=== PATIENT | female | born 1950 | race Caucasian/White ===

== ENCOUNTER 2022-06-02 21:03 | Inpatient (IN) | payer OTHER ==
[~2022-06-02] VITALS: Ht 157.5 cm; Wt 130.2 kg
[2022-06-02 21:05] VITALS: BP 123/58
--- NOTE | 2022-06-02 21:05 | NUR ---
TO BED AMBULATORY
--- NOTE | 2022-06-02 21:10 | NUR ---
RECEIVED IN BED 9 WITH C/O NUMBNESS TO LEFT SIDE OF HEAD AND LEFT SHOULDER. PT WITH EQUAL SMILE, KARLA, HAND APPOINTMENT MANAGER STRONG AND EQUAL.
--- NOTE | 2022-06-02 22:16 | NUR ---
DR IVLLANUEVA AT BEDSIDE FOR EXAM
[2022-06-02 22:35] LABS: BASOPHILS # (AUTO) 0.1 K/uL (0.00-0.22); BASOPHILS % (AUTO) 1.2 % (0.0-2.0); EOSINOPHILS # (AUTO) 0.2 K/uL (0-0.4); EOSINOPHILS % (AUTO) 2.3 % (0.0-4.0); HEMATOCRIT 36.9 % (36-48); HEMOGLOBIN 12.1 g/dL (12.0-16.0); LYMPHOCYTES # (AUTO) 2.3 K/uL (2.5-16.5); LYMPHOCYTES % (AUTO) 25.5 % (20.5-51.1); MEAN CORPUSCULAR HEMOGLOBIN 28 pg (27-31); MEAN CORPUSCULAR HGB CONC 33 g/dL (33-37); MONOCYTES # (AUTO) 0.5 K/uL (0.8-1.0); MONOCYTES % (AUTO) 5.8 % (1.7-9.3); NEUTROPHILS % (AUTO) 65.2 % (42.2-75.2); PLATELET COUNT (AUTO) 230 K/uL (140-450); RED CELL DISTRIBUTION WIDTH 15.7 % (11.6-13.7); WHITE BLOOD COUNT (AUTO) 9.2 K/uL (4.8-10.8)
--- NOTE | 2022-06-02 22:38 | NUR ---
PT TO CT VIA ROBYN
--- NOTE | 2022-06-02 22:50 | NUR ---
RETURNED FROM CT
[2022-06-02 22:55] LABS: ANION GAP 10.8 (8-16); CARBON DIOXIDE 33.2 mmol/L (21-32); CHLORIDE 102 mmol/L (98-107); CREATININE 0.6 mg/dL (0.6-1.3); GLUCOSE 170 mg/dL (74-106); SODIUM SERUM 143 mmol/L (136-145); UREA NITROGEN, BLOOD 15 mg/dL (7-18)
[2022-06-02 22:56] LABS: ALBUMIN 3.6 g/dL (3.4-5.0); ASPARTATE AMINOTRANSFERASE 24 U/L (15-37); GFR ARICAN-AMERICAN 127 mL/min (>90); TOTAL BILIRUBIN 0.1 mg/dL (0.0-1.0)
[2022-06-02 22:58] LABS: PROTHROMBIN TIME 9.9 secs (10.8-13.4)
[2022-06-03] MEDS ORDERED: POTASSIUM CHLORIDE 20% 40 MEQ/15 ML UDC PO ONE
--- NOTE | 2022-06-03 00:35 | NUR ---
PTS DAUGHTER AT BEDSIDE SPEAKING WITH KAY. DAUGHTER GLORY : [phone], DAUGHTER BRITTNEY [phone], DAUGHTER LUCIO : [phone]
[2022-06-03] MEDS ORDERED: CLOPIDOGREL 75 MG TAB PO ONE (00:45)
[2022-06-03] MEDS ORDERED: AMLO10TA89 PO (00:58)
[2022-06-03] MEDS ORDERED: OMEP40EC23 PO ×2 (01:04→09:30)
[2022-06-03] MEDS ORDERED: HYDR-4004 PO (01:04)
[2022-06-03] MEDS ORDERED: CANA100T PO (01:04)
[2022-06-03] MEDS ORDERED: OXYB5TAB44 PO (01:04)
[2022-06-03] MEDS ORDERED: ATOR20TA PO ×2 (01:04→09:30)
[2022-06-03] MEDS ORDERED: ISOS20TA13 PO (01:04)
[2022-06-03] MEDS ORDERED: GLIP10TE PO (01:04)
[2022-06-03] MEDS ORDERED: ASPIRIN 81 MG TAB.CHEW PO SCH (01:50)
[2022-06-03 02:07] LABS: APPEARANCE,URINE CLEAR (CLEAR); BILIRUBIN,URINE NEGATIVE (NEGATIVE); BLOOD, URINE NEGATIVE (NEGATIVE); COLOR,URINE YELLOW (YELLOW); LEUKOCYTE ESTERASE ,URINE NEGATIVE (NEGATIVE); NITRITE, URINE NEGATIVE (NEGATIVE); UGLUCOSE >=1000 (NEGATIVE)
[2022-06-03 02:21] LABS: RBC,URINE 0-5 /HPF (0-5); WBC,URINE 0-5 /HPF (0-5); YEAST,URINE Rare /HPF (None Seen)
--- NOTE | 2022-06-03 02:28 | NUR ---
REPORT GIVEN TO ELVIS BOYD
[2022-06-03 03:00] VITALS: BP 136/63
--- NOTE | 2022-06-03 03:00 | NUR ---
RECEIVED PATIENT FROM ER NURSE ALVARADO FOR CONTINUITY OF CARE. PATIENT IS A&O X4. PATIENT IS ON ROOM AIR, BREATHING IS NORMAL WITH SYMMETRICAL RISE AND FALL OF CHEST. IV IS A 20G RAC, NO FLUIDS RUNNING AT THIS TIME (SALINE LOCKED). PATIENT IS AWAKE AND ALERT. PATIENT IS ABLE TO AMBULATE INDEPENDENTLY. BED IS IN LOWEST POSITION, WHEELS LOCKED, CALL LIGHT IN PLACE. WILL CONTINUE TO OBSERVE PATIENT.
[2022-06-03] MEDS: BLOOD GLUCOSE MONITORING 1 DEV DEV FS SCH ×4 (06:43→20:55)
--- NOTE | 2022-06-03 07:48 | NUR ---
ENDORSED TO DAY SHIFT NURSE JOSEPH FOR CONTINUITY OF CARE. PATIENT IS STABLE.
[2022-06-03 08:00] VITALS: BP 131/58
[2022-06-03] MEDS ORDERED: MAG SULF 2000 MG/WATER PREMIX 50 ML IV PRN (08:00)
[2022-06-03 08:02] LABS: BASOPHILS # (AUTO) 0.1 K/uL (0.00-0.22); BASOPHILS % (AUTO) 0.9 % (0.0-2.0); EOSINOPHILS # (AUTO) 0.2 K/uL (0-0.4); EOSINOPHILS % (AUTO) 2.2 % (0.0-4.0); HEMATOCRIT 35.6 % (36-48); HEMOGLOBIN 11.6 g/dL (12.0-16.0); LYMPHOCYTES # (AUTO) 1.9 K/uL (2.5-16.5); LYMPHOCYTES % (AUTO) 21.9 % (20.5-51.1); MEAN CORPUSCULAR HEMOGLOBIN 28 pg (27-31); MEAN CORPUSCULAR HGB CONC 33 g/dL (33-37); MEAN CORPUSCULAR VOLUME 84.1 fL (80-94); MONOCYTES # (AUTO) 0.6 K/uL (0.8-1.0); MONOCYTES % (AUTO) 6.4 % (1.7-9.3); NEUTROPHILS % (AUTO) 68.6 % (42.2-75.2); PLATELET COUNT (AUTO) 212 K/uL (140-450); RED BLOOD CELL COUNT(AUTO) 4.23 MIL/uL (4.20-5.40); RED CELL DISTRIBUTION WIDTH 15.6 % (11.6-13.7); WHITE BLOOD COUNT (AUTO) 8.8 K/uL (4.8-10.8)
[2022-06-03 08:16] LABS: ANION GAP 8.3 (8-16); CARBON DIOXIDE 35.6 mmol/L (21-32); CREATININE 0.5 mg/dL (0.6-1.3); POTASSIUM 3.9 mmol/L (3.5-5.1)
[2022-06-03] MEDS ORDERED: ACETAMINOPHEN 325 MG TAB PO PRN ×2 (10:20→14:05)
[2022-06-03] MEDS: hydroCHLOROthiazide 25 MG TAB PO SCH (11:29)
[2022-06-03] MEDS: ISOSORBIDE MONONITRATE 30 MG TABER PO SCH (11:29)
[2022-06-03] MEDS: CLOPIDOGREL 75 MG TAB PO SCH (11:30)
[2022-06-03] MEDS: INSULIN LISPRO SLIDING SCALE 100 UNITS/ML VIAL SUBQ PRN (11:30)
[2022-06-03 12:00] VITALS: BP 124/48
[2022-06-03] MEDS ORDERED: DOCUSATE SODIUM 100 MG GELCAP PO PRN (14:05)
[2022-06-03] MEDS ORDERED: MORPHINE SULFATE 2 MG/ML SYR IVP PRN (14:05)
[2022-06-03] MEDS ORDERED: LORazepam 2 MG/ML VIAL IVP PRN (14:05)
[2022-06-03] MEDS ORDERED: ONDANSETRON 4 MG/2 ML VIAL IVP PRN (14:05)
[2022-06-03] MEDS ORDERED: POTASSIUM CHLORIDE 10 MEQ TABER PO PRN (14:05)
[2022-06-03] MEDS ORDERED: ZOLPIDEM 10 MG TAB PO PRN (14:05)
[2022-06-03 16:00] VITALS: BP 119/50
--- NOTE | 2022-06-03 16:09 | NUR ---
ORDER RECEIVED FOR AN MRI TO R/O CVA. ORDER AND CLINICAL PACKET FAXED TO [facility] AND [facility].
--- NOTE | 2022-06-03 19:30 | NUR ---
RECEIVED REPORT FROM DAY SHIFT NURSE JOSEPH FOR CONTINUITY OF CARE. PATIENT IS A&O X4. PATIENT IS ON ROOM AIR, BREATHING IS NORMAL WITH SYMMETRICAL RISE AND FALL OF CHEST. IV IS A 20G RAC, NO FLUIDS RUNNING AT THIS TIME (SALINE LOCKED). PATIENT IS AWAKE AND ALERT. PATIENT IS ABLE TO AMBULATE INDEPENDENTLY. PATIENT IS LYING IN BED VISITING WITH FAMILY MEMBER. BED IS IN LOWEST POSITION, WHEELS LOCKED, CALL LIGHT IN PLACE. WILL CONTINUE TO OBSERVE PATIENT.
[2022-06-03 20:00] VITALS: BP 120/50
[2022-06-04] VITALS: BP 121/57
[2022-06-04 04:00] VITALS: BP 133/65
--- NOTE | 2022-06-04 04:35 | NUR ---
PATIENT HAS CONTINUED TO SLEEP THROUGHOUT THE NIGHT. BREATHING IS NORMAL WITH SYMMETRICAL RISE AND FALL OF CHEST. WILL CONTINUE TO OBSERVE PATIENT.
[2022-06-04 05:28] LABS: BASOPHILS # (AUTO) 0.1 K/uL (0.00-0.22); BASOPHILS % (AUTO) 0.8 % (0.0-2.0); EOSINOPHILS # (AUTO) 0.2 K/uL (0-0.4); EOSINOPHILS % (AUTO) 2.6 % (0.0-4.0); HEMATOCRIT 35.3 % (36-48); HEMOGLOBIN 11.5 g/dL (12.0-16.0); LYMPHOCYTES # (AUTO) 2.3 K/uL (2.5-16.5); LYMPHOCYTES % (AUTO) 26.5 % (20.5-51.1); MEAN CORPUSCULAR HEMOGLOBIN 28 pg (27-31); MEAN CORPUSCULAR HGB CONC 33 g/dL (33-37); MEAN CORPUSCULAR VOLUME 84.4 fL (80-94); MONOCYTES # (AUTO) 0.6 K/uL (0.8-1.0); NEUTROPHILS # (AUTO) 5.4 K/uL (1.8-7.7); NEUTROPHILS % (AUTO) 63.1 % (42.2-75.2); PLATELET COUNT (AUTO) 229 K/uL (140-450); RED BLOOD CELL COUNT(AUTO) 4.18 MIL/uL (4.20-5.40); WHITE BLOOD COUNT (AUTO) 8.6 K/uL (4.8-10.8)
[2022-06-04 05:52] LABS: ANION GAP 8.8 (8-16); CARBON DIOXIDE 33.2 mmol/L (21-32); CREATININE 0.5 mg/dL (0.6-1.3)
[2022-06-04] MEDS: BLOOD GLUCOSE MONITORING 1 DEV DEV FS SCH ×4 (06:39→21:00)
--- NOTE | 2022-06-04 07:00 | NUR ---
receive the patient from nighty shift rn in rm 126B with admitting diagnosis of transient schemic attack . aox4 . will continue to monitor
--- NOTE | 2022-06-04 07:44 | NUR ---
ENDORSED TO DAY SHIFT NURSE MUSA FOR CONTINUITY OF CARE. PATIENT IS STABLE.
[2022-06-04 08:00] VITALS: BP 155/60
[2022-06-04] MEDS ORDERED: CLOPIDOGREL 75 MG TAB PO SCH (09:00)
--- NOTE | 2022-06-04 09:22 | NUR ---
PATIENT HAS BEEN SCREENED AND CATEGORIZED MODERATE NUTRITION RISK. PATIENT WILL BE SEEN WITHIN 3-5 DAYS OF ADMISSION. REVIEWED BY SAMANTA KIMBALL RD
[2022-06-04] MEDS: ASPIRIN 81 MG TAB.CHEW PO SCH (09:36)
[2022-06-04] MEDS: CLOPIDOGREL 75 MG TAB PO SCH (09:36)
[2022-06-04] MEDS: hydroCHLOROthiazide 25 MG TAB PO SCH (09:36)
[2022-06-04] MEDS: amLODIPine 5 MG TAB PO SCH (09:37)
[2022-06-04] MEDS: ATORVASTATIN 20 MG TAB PO SCH (09:37)
[2022-06-04] MEDS: ISOSORBIDE MONONITRATE 30 MG TABER PO SCH (09:37)
--- NOTE | 2022-06-04 11:28 | NUR ---
DC PLANNING: CALLED [facility] SPOKE WITH MARCIA STATED HAS NO PAPERWORK. FAXED TO [facility] AND PROMED CM TO FOLLOW Addendum: 06/04/22 at 1610 by Yesenia Templeton RN DC PLANNING: CALLED [facility] SPOKE WITH MARCIA STATED NO BED AVAILABLE. CM TO FOLLOW
[2022-06-04] MEDS: INSULIN LISPRO SLIDING SCALE 100 UNITS/ML VIAL SUBQ PRN ×3 (11:54→22:02)
--- NOTE | 2022-06-04 15:15 | NUR ---
DC PLANNING ASSESSMENT COMPLETE SEE ASSESSMENT FOR DETAILS PER PT, TENTATIVE DC PLAN IS TO RETURN HOME WITH FAMILY PROVIDING TRANSPORTATION, WHEN MEDICALLY STABLE. Addendum: 06/04/22 at 1516 by Carson HELM Amended: Links added.
[2022-06-04 16:00] VITALS: BP 169/66
--- NOTE | 2022-06-04 19:35 | NUR ---
RECEIVED REPORT FROM [facility] NURSE VIGIL FOR CONTINUITY OF CARE. PATIENT IS RESTING IN BED ON ROOM AIR. NO SOB NOTED. RESPIRATION EVEN UNLABORED. NO COMPLAINTS OF AIN AT THIS TIME. IV ACCESS ON THE LAC 20 GAUGE SALINE LOCK. CALL LIGHT WITHIN REACH. PATIENT IS ABLE TO AMBULATE. BED WHEELS LOCKED.
[2022-06-04 20:00] VITALS: BP 125/65
--- NOTE | 2022-06-04 21:42 | NUR ---
ADMINISTERED SCHEDULED DUE MEDICATION.
[2022-06-05] VITALS: BP 128/62
[2022-06-05 04:00] VITALS: BP 114/65
--- NOTE | 2022-06-05 04:30 | NUR ---
SHANTEL FROM [facility] CALLED SAYING TO DISCUSS WITH THE ATTENDING THAT THE HOSPITAL STANDARD IN [facility] IS AFTER [address] IF NEGATIVE PATIENT MAY GO HOME.
[2022-06-05 05:29] LABS: BASOPHILS # (AUTO) 0.1 K/uL (0.00-0.22); BASOPHILS % (AUTO) 0.8 % (0.0-2.0); EOSINOPHILS # (AUTO) 0.2 K/uL (0-0.4); EOSINOPHILS % (AUTO) 1.9 % (0.0-4.0); HEMATOCRIT 35.9 % (36-48); HEMOGLOBIN 11.9 g/dL (12.0-16.0); LYMPHOCYTES # (AUTO) 2.3 K/uL (2.5-16.5); LYMPHOCYTES % (AUTO) 25.3 % (20.5-51.1); MEAN CORPUSCULAR HEMOGLOBIN 27 pg (27-31); MEAN CORPUSCULAR HGB CONC 33 g/dL (33-37); MEAN CORPUSCULAR VOLUME 83.1 fL (80-94); MONOCYTES # (AUTO) 0.6 K/uL (0.8-1.0); MONOCYTES % (AUTO) 7.3 % (1.7-9.3); NEUTROPHILS # (AUTO) 5.8 K/uL (1.8-7.7); NEUTROPHILS % (AUTO) 64.7 % (42.2-75.2); PLATELET COUNT (AUTO) 233 K/uL (140-450); RED BLOOD CELL COUNT(AUTO) 4.32 MIL/uL (4.20-5.40); WHITE BLOOD COUNT (AUTO) 8.9 K/uL (4.8-10.8)
[2022-06-05] MEDS: BLOOD GLUCOSE MONITORING 1 DEV DEV FS SCH ×2 (06:34→11:39)
--- NOTE | 2022-06-05 06:34 | NUR ---
BLOOD SUGAR CHECKED WAS 148, NO INSULIN COVERAGE NEEDED.
[2022-06-05 06:36] LABS: ANION GAP 10.8 (8-16); CARBON DIOXIDE 32.5 mmol/L (21-32); CREATININE 0.6 mg/dL (0.6-1.3); POTASSIUM 3.3 mmol/L (3.5-5.1)
--- NOTE | 2022-06-05 07:13 | NUR ---
receive the patient from the scene shifter rn in s table condition if the repeat computed tomography came witin normal limits . discharge the patinet to home today . will continue to monitor
--- NOTE | 2022-06-05 07:27 | NUR ---
ENDORSED TO AM SHIFT NURSE FOR CONTINUITY OF CARE.
[2022-06-05] MEDS: ISOSORBIDE MONONITRATE 30 MG TABER PO SCH (09:25)
[2022-06-05] MEDS: hydroCHLOROthiazide 25 MG TAB PO SCH (09:25)
[2022-06-05] MEDS: CLOPIDOGREL 75 MG TAB PO SCH (09:25)
[2022-06-05] MEDS: ATORVASTATIN 20 MG TAB PO SCH (09:26)
[2022-06-05] MEDS: amLODIPine 5 MG TAB PO SCH (09:26)
[2022-06-05] MEDS: ASPIRIN 81 MG TAB.CHEW PO SCH (09:26)
[2022-06-05] MEDS ORDERED: ATOR20TA PO (10:14)
[2022-06-05] MEDS ORDERED: ASPI-1749 PO (10:14)
[2022-06-05] MEDS ORDERED: CLOP-68 PO (11:13)
[2022-06-05] MEDS: INSULIN LISPRO SLIDING SCALE 100 UNITS/ML VIAL SUBQ PRN (11:40)
[2022-06-05 12:55] VITALS: BP 128/78
--- NOTE | 2022-06-05 13:30 | NUR ---
made discharge teaching tpo the patient .no oily , salty food . to see the patient primary care physician in 3-5 days discharge the patient home with the to the lobby in a waiting private car in s table condition
== END 2022-06-05 13:25 | disposition home or self-care (01) | DRG 638 ==
LOC: MED 21:03 → MTU 06-03 01:55 → MMU 06-03 02:36
PROVIDERS: ADMIT Family Medicine; ATTEND Family Medicine
DX: E11.65 Type 2 diabetes mellitus with hyperglycemia (principal); G45.9 Transient cerebral ischemic attack, unspecified; E87.6 Hypokalemia; R20.0 Anesthesia of skin; I10 Essential (primary) hypertension; E78.5 Hyperlipidemia, unspecified; K21.9 Gastro-esophageal reflux disease without esophagitis; Z20.822 Contact with and (suspected) exposure to COVID-19; Z90.49 Acquired absence of other specified parts of digestive tract; Z88.0 Allergy status to penicillin; Z79.899 Other long term (current) drug therapy
CPT/HCPCS: 36415; 70450; 71045; 80048; 80053; 81001; 82948; 83036; 83735; 84484; 85025; 85610; 85730; 87081; 87635-QW; 99291; J1644; Q0092; Q9967